=== PATIENT | female | born 1940 | race Caucasian/White ===

== ENCOUNTER → 2016-11-04 | Outpatient (CLI) | payer MEDICARE, BC ==
[~2016-11-04] MED LIST: ACETAMINOPHEN-H1 TA3 PO; AMLODIPINE5 MG PO; CARDI-OMEGA1000 MG PO; DYAZIDE 25 MG-31 CAP PO; GABAPENTIN100 MG PO; GOOD SENSE ASPI81 M1 PO; IPRATROPIUM BROM3 M1 IH; LEVOTHYROXIN0.075 MG PO; MORGIDOX 1X100100 MG PO; NIACIN500 M3 PO; NORCO 325 MG-7.1 TAB PO; PRAVACHOL 40MG40 MG PO; PRAVASTATIN20 MG PO; PREDNISONE20 M1 PO; TIROSINT88 MC1 PO; TOPROL XL 25MG25 MG PO; TOPROL XL 50MG50 MG PO
== END ==
LOC: RAD 11:50
DX: I48.2 Chronic atrial fibrillation (principal); R05 Cough

== ENCOUNTER → 2016-11-06 | Outpatient (CLI) | payer MEDICARE, BC | LOC: LAB 09:01 | DX: I48.91 Unspecified atrial fibrillation (principal); E03.9 Hypothyroidism, unspecified ==

== ENCOUNTER → 2016-12-12 | Outpatient (CLI) | payer MEDICARE, BC ==
[2016-05-13 12:01] VITALS: BP 123/60
== END ==
LOC: RAD 08:16
DX: I48.91 Unspecified atrial fibrillation (principal); E03.9 Hypothyroidism, unspecified; E07.89 Other specified disorders of thyroid; I48.2 Chronic atrial fibrillation; I10 Essential (primary) hypertension; R91.1 Solitary pulmonary nodule
CPT/HCPCS: Q9967

== ENCOUNTER → 2017-01-23 | Outpatient (CLI) | payer MEDICARE, BC ==
[2016-05-13 12:01] VITALS: BP 123/60
== END ==
LOC: LAB 08:15
DX: E03.9 Hypothyroidism, unspecified (principal); I48.91 Unspecified atrial fibrillation; E07.89 Other specified disorders of thyroid; E78.2 Mixed hyperlipidemia

== ENCOUNTER → 2017-02-06 | Outpatient (CLI) | payer MEDICARE, BC ==
[2016-05-13 12:01] VITALS: BP 123/60
== END ==
LOC: LAB 12:29
DX: R06.02 Shortness of breath (principal)

== ENCOUNTER → 2017-02-10 | Outpatient (CLI) | payer MEDICARE, BC ==
[2016-05-13 12:01] VITALS: BP 123/60
== END ==
LOC: LAB 12:42
DX: I10 Essential (primary) hypertension (principal); E87.6 Hypokalemia

== ENCOUNTER → 2017-03-07 | Outpatient (CLI) | payer MEDICARE, BC ==
[2016-05-13 12:01] VITALS: BP 123/60
== END ==
LOC: LAB 16:15
DX: J43.2 Centrilobular emphysema (principal)

== ENCOUNTER → 2017-06-19 | Outpatient (CLI) | payer MEDICARE, BC ==
[2016-05-13 12:01] VITALS: BP 123/60
[2017-06-19 08:06] LABS: BUN/CREATININE RATIO 17.1 (6.0-26.0); CALCIUM 9.5 mg/dL (8.4-10.2); POTASSIUM 3.7 mmol/L (3.6-5.0)
== END ==
LOC: RAD 07:41
PROVIDERS: Internal Medicine Pulmonary Disease
DX: R91.1 Solitary pulmonary nodule (principal); N28.9 Disorder of kidney and ureter, unspecified
CPT/HCPCS: Q9967

== ENCOUNTER → 2017-07-17 | Outpatient (CLI) | payer MEDICARE, BC ==
[2016-05-13 12:01] VITALS: BP 123/60
== END ==
LOC: LAB 10:15 → RAD 10:15
DX: N28.9 Disorder of kidney and ureter, unspecified (principal); N28.1 Cyst of kidney, acquired

== ENCOUNTER → 2017-09-26 | Outpatient (CLI) | payer MEDICARE, BC ==
[2016-05-13 12:01] VITALS: BP 123/60
[2017-09-26 13:34] LABS: BASO # 0.1 (0.02-0.10); EOS # 0.5 (0.04-0.40); EOS % 5.8 % (1.0-5.0); HEMATOCRIT 41.6 % (37.0-47.0); HEMOGLOBIN 13.8 g/dL (12.5-16.0); LYMPH# 2.7 (1.50-4.00); MEAN CELL VOLUME 90 fl (78-100); MEAN CORPUSCULAR HEMOGLOBIN 30 pg (27-31); MEAN CORPUSCULAR HGB CONC 33 g/dL (33-37); MEAN PLATELET VOLUME 10.6 fl (7.4-10.4); MONO # 0.8 (0.20-0.80); NEU # 4.8 (1.40-6.50); PLATELET COUNT 327 K/mm3 (130-400); RED BLOOD COUNT 4.62 M/mm3 (4.10-5.30); RED CELL DISTRIBUTION WIDTH 12.9 % (11.5-14.5); WHITE BLOOD COUNT 8.9 K/mm3 (4.8-10.8)
[2017-09-26 14:11] LABS: URINE COLOR YELLOW
[2017-09-26 14:12] LABS: PH-URINE 5.5 (5.0 - 8.0); URINE APPEARANCE HAZY; URINE BILIRUBIN NEGATIVE (NEGATIVE); URINE BLOOD TRACE (NEGATIVE); URINE GLUCOSE NEGATIVE (NEGATIVE); URINE KETONE NEGATIVE (NEGATIVE); URINE LEUKOCYTE ESTERASE 2+ (NEGATIVE); URINE NITRATE NEGATIVE (NEGATIVE); URINE PROTEIN(semi-quant) TRACE mg/dL (NEGATIVE); URINE UROBILINOGEN NORMAL (NORMAL); URINE WBC 16-30 /hpf (0-3)
[2017-09-26 14:29] LABS: ALBUMIN 3.8 g/dL (3.5-5.0); BUN/CREATININE RATIO 19.7 (6.0-26.0); CALCIUM 9.6 mg/dL (8.4-10.2); TOTAL BILIRUBIN 0.3 mg/dL (0.2-1.3); TOTAL PROTEIN 6.6 g/dL (6.3-8.2)
[2017-09-26 15:14] LABS: ERYTHROCYTE SEDIMENTATION RATE 25 mm/hr (0-30)
== END ==
LOC: LAB 12:58
PROVIDERS: Internal Medicine
DX: I48.2 Chronic atrial fibrillation (principal); E78.2 Mixed hyperlipidemia; M85.89 Other specified disorders of bone density and structure, multiple sites; Z12.11 Encounter for screening for malignant neoplasm of colon

== ENCOUNTER → 2017-12-25 | Outpatient (CLI) | payer MEDICARE, BC ==
[2016-05-13 12:01] VITALS: BP 123/60
[2017-12-25 08:54] LABS: BUN/CREATININE RATIO 19.9 (6.0-26.0); CALCIUM 9.2 mg/dL (8.4-10.2); POTASSIUM 3.4 mmol/L (3.6-5.0); TOTAL BILIRUBIN 0.7 mg/dL (0.2-1.3); TOTAL PROTEIN 7.4 g/dL (6.3-8.2)
== END ==
LOC: LAB 08:17
DX: I10 Essential (primary) hypertension (principal); E78.2 Mixed hyperlipidemia

== ENCOUNTER 2018-01-30 10:52 | Observation (INO) | payer MEDICARE, BC ==
[~2018-01-30] VITALS: Ht 157.5 cm; Wt 53.6 kg
[~2018-01-30 10:52] MED LIST changes: +TIROSINT75 MC1 PO; -TIROSINT88 MC1 PO
[2018-01-30] MEDS ORDERED: MACROBID 1100 MG/CAP PO (11:04)
[2018-01-30] MEDS ORDERED: ATORVASTATIN CA40 MG PO (11:05)
[2018-01-30 11:50] LABS: HEMOGLOBIN 14.7 g/dL (12.5-16.0); MEAN CELL VOLUME 86 fl (78-100); MEAN CORPUSCULAR HEMOGLOBIN 29 pg (27-31); MEAN CORPUSCULAR HGB CONC 34 g/dL (33-37); MEAN PLATELET VOLUME 10.9 fl (7.4-10.4); PLATELET COUNT 212 K/mm3 (130-400); RED CELL DISTRIBUTION WIDTH 12.5 % (11.5-14.5); WHITE BLOOD COUNT 9.2 K/mm3 (4.8-10.8)
[2018-01-30 12:00] LABS: ALBUMIN 3.8 g/dL (3.5-5.0); BUN/CREATININE RATIO 22.2 (6.0-26.0); CALCIUM 9.5 mg/dL (8.4-10.2); LYMPHOCYTE 20 % (20-51); MONOCYTE 7 % (3-10); NEUTROPHILS 59 % (42-75); POTASSIUM 3.2 mmol/L (3.6-5.0); TOTAL BILIRUBIN 1.7 mg/dL (0.2-1.3); TOTAL PROTEIN 7.6 g/dL (6.3-8.2)
[2018-01-30 13:12] LABS: URINE APPEARANCE CLEAR; URINE BILIRUBIN NEGATIVE (NEGATIVE); URINE BLOOD NEGATIVE (NEGATIVE); URINE COLOR YELLOW; URINE GLUCOSE NEGATIVE (NEGATIVE); URINE KETONE NEGATIVE (NEGATIVE); URINE LEUKOCYTE ESTERASE NEGATIVE (NEGATIVE); URINE MUCUS PRESENT (NOT PRESENT); URINE NITRATE NEGATIVE (NEGATIVE); URINE PROTEIN(semi-quant) TRACE mg/dL (NEGATIVE); URINE UROBILINOGEN NORMAL (NORMAL)
[2018-01-30 13:48] VITALS: BP 105/50
[2018-01-30 14:32] VITALS: BP 103/44
[2018-01-30] MEDS ORDERED: NATURE'S BOUNTY1 TAB PO (17:36)
[2018-01-30 18:24] VITALS: BP 104/40
[2018-01-30 21:40] VITALS: BP 107/50
[2018-01-31] VITALS (9 sets, daily range): BP systolic 86–114; BP diastolic 38–56
[2018-01-31 08:46] LABS: BUN/CREATININE RATIO 20.4 (6.0-26.0); POTASSIUM 3.1 mmol/L (3.6-5.0)
[2018-01-31 08:47] LABS: ALBUMIN 2.4 g/dL (3.5-5.0); CALCIUM 7.6 mg/dL (8.4-10.2); TOTAL BILIRUBIN 2.8 mg/dL (0.2-1.3); TOTAL PROTEIN 5.1 g/dL (6.3-8.2)
[2018-01-31 09:01] LABS: HEMATOCRIT 34.5 % (37.0-47.0); HEMOGLOBIN 11.9 g/dL (12.5-16.0); MEAN CELL VOLUME 87 fl (78-100); MEAN CORPUSCULAR HEMOGLOBIN 30 pg (27-31); MEAN CORPUSCULAR HGB CONC 35 g/dL (33-37); RED BLOOD COUNT 3.96 M/mm3 (4.10-5.30); RED CELL DISTRIBUTION WIDTH 12.6 % (11.5-14.5)
[2018-01-31 09:02] LABS: MEAN PLATELET VOLUME 10.8 fl (7.4-10.4); PLATELET COUNT 157 K/mm3 (130-400)
[2018-01-31 09:04] LABS: LYMPHOCYTE 4 % (20-51); MONOCYTE 9 % (3-10); NEUTROPHILS 87 % (42-75)
[2018-02-01 02:47] VITALS: BP 106/46
[2018-02-01 06:45] VITALS: BP 105/46
[2018-02-01 08:00] LABS: HEMATOCRIT 41.1 % (37.0-47.0); HEMOGLOBIN 13.6 g/dL (12.5-16.0); MEAN CELL VOLUME 89 fl (78-100); MEAN CORPUSCULAR HEMOGLOBIN 30 pg (27-31); MEAN CORPUSCULAR HGB CONC 33 g/dL (33-37); MEAN PLATELET VOLUME 11.2 fl (7.4-10.4); PLATELET COUNT 176 K/mm3 (130-400); RED CELL DISTRIBUTION WIDTH 13.1 % (11.5-14.5)
[2018-02-01 08:07] LABS: ALBUMIN 3.2 g/dL (3.5-5.0); BUN/CREATININE RATIO 19.3 (6.0-26.0); CALCIUM 8.3 mg/dL (8.4-10.2); POTASSIUM 3.6 mmol/L (3.6-5.0); TOTAL BILIRUBIN 3.7 mg/dL (0.2-1.3); TOTAL PROTEIN 6.6 g/dL (6.3-8.2)
[2018-02-01 08:21] LABS: BAND 2 % (0-10); LYMPHOCYTE 12 % (20-51); MONOCYTE 2 % (3-10); NEUTROPHILS 81 % (42-75)
[2018-02-01 11:18] VITALS: BP 116/44
[2018-02-01] MEDS ORDERED: ONDANSENTRON 4MG/2ML IV (11:30)
[2018-02-01] MEDS ORDERED: FENTANYL 50 MCG/ML IV (11:30)
[2018-02-01] MEDS ORDERED: KLOR-CON 1010 MEQ PO (11:31)
[2018-02-01] MEDS ORDERED: TORADOL IV (11:32)
[2018-02-01] MEDS ORDERED: ALBUTEROL S5 MG/1 ML IH (11:32)
== END 2018-02-01 13:55 | disposition short-term general hospital (02) ==
LOC: ED 10:52 → MED/SURG 13:58
PROVIDERS: Family Medicine; ADMIT Physician Assistant
DX: R10.11 Right upper quadrant pain (principal); E87.70 Fluid overload, unspecified; J90 Pleural effusion, not elsewhere classified; R50.9 Fever, unspecified; I10 Essential (primary) hypertension; I48.91 Unspecified atrial fibrillation; E03.9 Hypothyroidism, unspecified; J43.9 Emphysema, unspecified; Z79.82 Long term (current) use of aspirin; Z90.49 Acquired absence of other specified parts of digestive tract; F17.210 Nicotine dependence, cigarettes, uncomplicated; R11.0 Nausea; R74.8 Abnormal levels of other serum enzymes; I65.29 Occlusion and stenosis of unspecified carotid artery; N39.0 Urinary tract infection, site not specified
CPT/HCPCS: G0378; J0295; J1885; J1940; J2405; J3010; J7030; Q9967

== ENCOUNTER → 2018-02-05 | Outpatient (CLI) | payer MEDICARE, BC ==
[2018-02-01 11:18] VITALS: BP 116/44
[~2018-02-05] MED LIST changes: +ALBUTEROL S5 MG/1 ML IH; +ATORVASTATIN CA40 MG PO; +FENTANYL 50 MCG/ML IV; +KLOR-CON 1010 MEQ PO; +MACROBID 1100 MG/CAP PO; +NATURE'S BOUNTY1 TAB PO; +ONDANSENTRON 4MG/2ML IV; +TORADOL IV
[2018-02-05 09:40] LABS: HEMOGLOBIN 11.7 g/dL (12.5-16.0); MEAN CELL VOLUME 89 fl (78-100); MEAN CORPUSCULAR HEMOGLOBIN 30 pg (27-31); MEAN CORPUSCULAR HGB CONC 33 g/dL (33-37); MEAN PLATELET VOLUME 10.1 fl (7.4-10.4); PLATELET COUNT 342 K/mm3 (130-400); RED BLOOD COUNT 3.93 M/mm3 (4.10-5.30); RED CELL DISTRIBUTION WIDTH 12.8 % (11.5-14.5); WHITE BLOOD COUNT 11.2 K/mm3 (4.8-10.8)
[2018-02-05 10:00] LABS: ALBUMIN 3.1 g/dL (3.5-5.0); BUN/CREATININE RATIO 10.2 (6.0-26.0); CALCIUM 8.5 mg/dL (8.4-10.2); POTASSIUM 3.1 mmol/L (3.6-5.0); TOTAL BILIRUBIN 1.4 mg/dL (0.2-1.3); TOTAL PROTEIN 6.6 g/dL (6.3-8.2)
[2018-02-05 10:06] LABS: LYMPHOCYTE 28 % (20-51); MONOCYTE 2 % (3-10); NEUTROPHILS 48 % (42-75)
== END ==
LOC: LAB 09:05
DX: J18.9 Pneumonia, unspecified organism (principal); K85.90 Acute pancreatitis without necrosis or infection, unspecified

== ENCOUNTER → 2018-02-13 | Outpatient (CLI) | payer MEDICARE, BC ==
[2018-02-01 11:18] VITALS: BP 116/44
[2018-02-13 15:03] LABS: HEMATOCRIT 40.1 % (37.0-47.0); HEMOGLOBIN 12.9 g/dL (12.5-16.0); MEAN CELL VOLUME 92 fl (78-100); MEAN CORPUSCULAR HEMOGLOBIN 30 pg (27-31); MEAN CORPUSCULAR HGB CONC 32 g/dL (33-37); MEAN PLATELET VOLUME 10.2 fl (7.4-10.4); RED BLOOD COUNT 4.38 M/mm3 (4.10-5.30); RED CELL DISTRIBUTION WIDTH 13.6 % (11.5-14.5); WHITE BLOOD COUNT 8.1 K/mm3 (4.8-10.8)
[2018-02-13 15:32] LABS: PLATELET COUNT 505 K/mm3 (130-400)
[2018-02-13 15:43] LABS: ALBUMIN 3.9 g/dL (3.5-5.0); BUN/CREATININE RATIO 14.6 (6.0-26.0); CALCIUM 9.3 mg/dL (8.4-10.2); POTASSIUM 3.6 mmol/L (3.6-5.0); TOTAL PROTEIN 8.1 g/dL (6.3-8.2)
[2018-02-13 15:55] LABS: LYMPHOCYTE 47 % (20-51); MONOCYTE 7 % (3-10); NEUTROPHILS 37 % (42-75)
[2018-02-13 16:02] LABS: ERYTHROCYTE SEDIMENTATION RATE 49 mm/hr (0-30)
== END ==
LOC: LAB 14:44
PROVIDERS: Internal Medicine
DX: I10 Essential (primary) hypertension (principal)

== ENCOUNTER → 2018-03-11 | Outpatient (CLI) | payer MEDICARE, BC ==
[2018-03-11 18:30] LABS: HEMATOCRIT 41.8 % (37.0-47.0); HEMOGLOBIN 13.5 g/dL (12.5-16.0); MEAN CELL VOLUME 91 fl (78-100); MEAN CORPUSCULAR HEMOGLOBIN 29 pg (27-31); MEAN CORPUSCULAR HGB CONC 32 g/dL (33-37); MEAN PLATELET VOLUME 11.1 fl (7.4-10.4); PLATELET COUNT 249 K/mm3 (130-400); RED BLOOD COUNT 4.59 M/mm3 (4.10-5.30); RED CELL DISTRIBUTION WIDTH 13.2 % (11.5-14.5); WHITE BLOOD COUNT 7.7 K/mm3 (4.8-10.8)
[2018-03-11 18:34] LABS: BUN/CREATININE RATIO 18.7 (6.0-26.0); TOTAL BILIRUBIN 0.5 mg/dL (0.2-1.3); TOTAL PROTEIN 7.7 g/dL (6.3-8.2)
[2018-03-11 20:21] LABS: LYMPHOCYTE 31 % (20-51); MONOCYTE 6 % (3-10); NEUTROPHILS 56 % (42-75)
== END ==
LOC: LAB 17:28
PROVIDERS: Internal Medicine
DX: I10 Essential (primary) hypertension (principal)

== ENCOUNTER → 2018-04-21 | Outpatient (CLI) | payer MEDICARE, BC ==
[2018-04-21 15:02] LABS: EOS # 0.4 (0.04-0.40); EOS % 5.6 % (1.0-5.0); HEMATOCRIT 42.3 % (37.0-47.0); LYMPH# 2.4 (1.50-4.00); MEAN CELL VOLUME 89 fl (78-100); MEAN CORPUSCULAR HEMOGLOBIN 29 pg (27-31); MEAN CORPUSCULAR HGB CONC 33 g/dL (33-37); MEAN PLATELET VOLUME 10.8 fl (7.4-10.4); MONO # 0.7 (0.20-0.80); NEU # 3.7 (1.40-6.50); PLATELET COUNT 258 K/mm3 (130-400); RED BLOOD COUNT 4.77 M/mm3 (4.10-5.30); RED CELL DISTRIBUTION WIDTH 12.9 % (11.5-14.5); WHITE BLOOD COUNT 7.3 K/mm3 (4.8-10.8)
[2018-04-21 15:06] LABS: CALCIUM 9.3 mg/dL (8.4-10.2); POTASSIUM 3.8 mmol/L (3.6-5.0); TOTAL BILIRUBIN 0.6 mg/dL (0.2-1.3); TOTAL PROTEIN 7.4 g/dL (6.3-8.2)
[2018-04-21 15:10] LABS: URINE APPEARANCE CLEAR; URINE COLOR LT YELLOW
[2018-04-21 15:11] LABS: PH-URINE 5.5 (5.0 - 8.0); URINE BILIRUBIN NEGATIVE (NEGATIVE); URINE BLOOD NEGATIVE (NEGATIVE); URINE GLUCOSE NEGATIVE (NEGATIVE); URINE KETONE NEGATIVE (NEGATIVE); URINE LEUKOCYTE ESTERASE TRACE (NEGATIVE); URINE NITRATE NEGATIVE (NEGATIVE); URINE PROTEIN(semi-quant) TRACE mg/dL (NEGATIVE); URINE UROBILINOGEN NORMAL (NORMAL)
== END ==
LOC: LAB 14:26
PROVIDERS: Internal Medicine
DX: R10.13 Epigastric pain (principal)

== ENCOUNTER → 2018-05-07 | Outpatient (CLI) | payer MEDICARE, BC ==
[2018-04-28 13:23] VITALS: BP 93/38
[2018-05-07 11:00] LABS: EOS # 0.4 (0.04-0.40); EOS % 5.8 % (1.0-5.0); HEMATOCRIT 40.7 % (37.0-47.0); HEMOGLOBIN 13.4 g/dL (12.5-16.0); LYMPH# 1.8 (1.50-4.00); MEAN CELL VOLUME 90 fl (78-100); MEAN CORPUSCULAR HEMOGLOBIN 30 pg (27-31); MEAN CORPUSCULAR HGB CONC 33 g/dL (33-37); MEAN PLATELET VOLUME 9.9 fl (7.4-10.4); MONO # 0.7 (0.20-0.80); NEU # 3.7 (1.40-6.50); PLATELET COUNT 363 K/mm3 (130-400); RED BLOOD COUNT 4.54 M/mm3 (4.10-5.30); RED CELL DISTRIBUTION WIDTH 13.3 % (11.5-14.5); WHITE BLOOD COUNT 6.7 K/mm3 (4.8-10.8)
[2018-05-07 11:25] LABS: ALBUMIN 3.7 g/dL (3.5-5.0); POTASSIUM 3.8 mmol/L (3.6-5.0); TOTAL BILIRUBIN 0.7 mg/dL (0.2-1.3)
[2018-05-07 12:07] LABS: ERYTHROCYTE SEDIMENTATION RATE 35 mm/hr (0-30)
== END ==
LOC: LAB 10:33
PROVIDERS: Internal Medicine
DX: K85.90 Acute pancreatitis without necrosis or infection, unspecified (principal); J43.9 Emphysema, unspecified; K83.0 Cholangitis; R10.13 Epigastric pain

== ENCOUNTER → 2018-05-29 | Outpatient (CLI) | payer MEDICARE, BC ==
[2018-04-28 13:23] VITALS: BP 93/38
[2018-05-29 11:07] LABS: ALBUMIN 3.8 g/dL (3.5-5.0); DIRECT BILIRUBIN 0.5 mg/dL (0.0-0.4); TOTAL BILIRUBIN 0.9 mg/dL (0.2-1.3); TOTAL PROTEIN 6.8 g/dL (6.3-8.2)
== END ==
LOC: LAB 10:08
PROVIDERS: Internal Medicine
DX: E03.9 Hypothyroidism, unspecified (principal); R10.13 Epigastric pain

== ENCOUNTER → 2018-07-24 | Outpatient (CLI) | payer MEDICARE, BC ==
[2018-04-28 13:23] VITALS: BP 93/38
== END ==
LOC: LAB 07:28
DX: E03.9 Hypothyroidism, unspecified (principal)

== ENCOUNTER → 2018-08-26 | Outpatient (CLI) | payer MEDICARE, BC ==
[2018-04-28 13:23] VITALS: BP 93/38
== END ==
LOC: RAD 10:38
DX: R07.81 Pleurodynia (principal); Z95.818 Presence of other cardiac implants and grafts

== ENCOUNTER → 2018-10-01 | Outpatient (CLI) | payer MEDICARE, BC ==
[2018-04-28 13:23] VITALS: BP 93/38
[2018-10-01 10:36] LABS: CALCIUM 9.4 mg/dL (8.4-10.2); POTASSIUM 3.5 mmol/L (3.6-5.0); TOTAL BILIRUBIN 0.5 mg/dL (0.2-1.3); TOTAL PROTEIN 7.2 g/dL (6.3-8.2)
== END ==
LOC: LAB 10:06
PROVIDERS: Internal Medicine
DX: I10 Essential (primary) hypertension (principal); E03.9 Hypothyroidism, unspecified; M85.80 Other specified disorders of bone density and structure, unspecified site

== ENCOUNTER → 2018-12-29 | Outpatient (CLI) | payer MEDICARE, BC ==
[2018-04-28 13:23] VITALS: BP 93/38
[2018-12-29 10:23] LABS: ALBUMIN 3.9 g/dL (3.5-5.0); CALCIUM 9.3 mg/dL (8.4-10.2); POTASSIUM 3.9 mmol/L (3.6-5.0); TOTAL BILIRUBIN 0.9 mg/dL (0.2-1.3); TOTAL PROTEIN 6.9 g/dL (6.3-8.2)
== END ==
LOC: LAB 09:19
PROVIDERS: Internal Medicine Cardiovascular Disease
DX: E78.5 Hyperlipidemia, unspecified (principal); I10 Essential (primary) hypertension

== ENCOUNTER → 2019-02-08 | Outpatient (CLI) | payer MEDICARE, BC ==
[2018-04-28 13:23] VITALS: BP 93/38
[2019-02-08 13:44] LABS: EOS # 0.2 (0.04-0.40); EOS % 2.1 % (1.0-5.0); HEMATOCRIT 41.3 % (37.0-47.0); HEMOGLOBIN 13.4 g/dL (12.5-16.0); LYMPH# 3.2 (1.50-4.00); MEAN CELL VOLUME 90 fl (78-100); MEAN CORPUSCULAR HEMOGLOBIN 29 pg (27-31); MEAN CORPUSCULAR HGB CONC 32 g/dL (33-37); MEAN PLATELET VOLUME 9.6 fl (7.4-10.4); PLATELET COUNT 317 K/mm3 (130-400); RED BLOOD COUNT 4.61 M/mm3 (4.10-5.30); RED CELL DISTRIBUTION WIDTH 12.7 % (11.5-14.5); WHITE BLOOD COUNT 11.4 K/mm3 (4.8-10.8)
[2019-02-08 14:07] LABS: ALBUMIN 2.9 g/dL (3.4-4.8); CALCIUM 8.7 mg/dL (8.3-10.5); POTASSIUM 3.2 mmol/L (3.5-5.1); TOTAL BILIRUBIN 0.4 mg/dL (0.2-1.2)
[2019-02-08 14:50] LABS: ERYTHROCYTE SEDIMENTATION RATE 40 mm/hr (0-30)
== END ==
LOC: LAB 13:31
PROVIDERS: Internal Medicine
DX: J98.4 Other disorders of lung (principal)

== ENCOUNTER → 2019-02-18 | Outpatient (CLI) | payer MEDICARE, BC ==
[2018-04-28 13:23] VITALS: BP 93/38
[2019-02-18 10:49] LABS: POTASSIUM 3.9 mmol/L (3.5-5.1)
[2019-02-18 10:50] LABS: CALCIUM 9.7 mg/dL (8.3-10.5)
== END ==
LOC: LAB 10:28
PROVIDERS: Internal Medicine
DX: I10 Essential (primary) hypertension (principal); E87.6 Hypokalemia

== ENCOUNTER → 2019-02-24 | Outpatient (CLI) | payer MEDICARE, BC ==
[2018-04-28 13:23] VITALS: BP 93/38
== END ==
LOC: VAS 12:53 → RAD 13:00
DX: I48.91 Unspecified atrial fibrillation (principal)

== ENCOUNTER → 2019-03-11 | Outpatient (CLI) | payer MEDICARE, BC ==
[2018-04-28 13:23] VITALS: BP 93/38
== END ==
LOC: MAMMO 09:05
DX: Z12.31 Encounter for screening mammogram for malignant neoplasm of breast (principal); M85.89 Other specified disorders of bone density and structure, multiple sites

== ENCOUNTER → 2019-03-11 | Outpatient (CLI) | payer MEDICARE, BC ==
[2018-04-28 13:23] VITALS: BP 93/38
== END ==
LOC: RAD 09:03 → MAMMO 10:00 → RAD 10:00
DX: M85.80 Other specified disorders of bone density and structure, unspecified site (principal)

== ENCOUNTER → 2019-03-19 | Outpatient (CLI) | payer MEDICARE, BC ==
[2018-04-28 13:23] VITALS: BP 93/38
== END ==
LOC: CARDREHAB 08:37
DX: I48.91 Unspecified atrial fibrillation (principal)
CPT/HCPCS: A9500

== ENCOUNTER → 2020-01-11 | Outpatient (CLI) | payer MEDICARE, BC ==
[2018-04-28 13:23] VITALS: BP 93/38
[2020-01-11 15:05] LABS: EOS # 0.3 (0.04-0.40); EOS % 3.2 % (1.0-5.0); HEMATOCRIT 41.6 % (37.0-47.0); HEMOGLOBIN 13.8 g/dL (12.5-16.0); LYMPH# 2.2 (1.50-4.00); MEAN CELL VOLUME 90 fl (78-100); MEAN CORPUSCULAR HEMOGLOBIN 30 pg (27-31); MEAN CORPUSCULAR HGB CONC 33 g/dL (33-37); MEAN PLATELET VOLUME 10.8 fl (7.4-10.4); MONO # 0.7 (0.20-0.80); NEU # 4.9 (1.40-6.50); PLATELET COUNT 246 K/mm3 (130-400); RED BLOOD COUNT 4.62 M/mm3 (4.10-5.30); RED CELL DISTRIBUTION WIDTH 12.2 % (11.5-14.5); WHITE BLOOD COUNT 8.1 K/mm3 (4.8-10.8)
[2020-01-11 15:20] LABS: ALBUMIN 3.7 g/dL (3.4-4.8); POTASSIUM 4.4 mmol/L (3.5-5.1)
[2020-01-11 15:21] LABS: CALCIUM 9.3 mg/dL (8.3-10.5)
[2020-01-11 15:23] LABS: TOTAL PROTEIN 6.8 g/dL (6.2-8.1)
[2020-01-11 15:24] LABS: TOTAL BILIRUBIN 0.6 mg/dL (0.2-1.2)
[2020-01-11 16:15] LABS: ERYTHROCYTE SEDIMENTATION RATE 20 mm/hr (0-30)
== END ==
LOC: LAB 14:24
PROVIDERS: Internal Medicine
DX: R10.84 Generalized abdominal pain (principal); R06.02 Shortness of breath

== ENCOUNTER 2020-01-26 11:45 | Emergency (ER) | payer MEDICARE, BC ==
[~2020-01-26 11:45] MED LIST changes: +ASPIRIN E.C. 8181 MG PO; -GOOD SENSE ASPI81 M1 PO; -NATURE'S BOUNTY1 TAB PO; -NIACIN500 M3 PO; +NIACIN500 M6 PO; -TIROSINT75 MC1 PO; +TIROSINT88 MC1 PO; +VITAMIN D325 MC2 PO
[2020-01-26 12:47] LABS: EOS # 0.3 (0.04-0.40); EOS % 4.3 % (1.0-5.0); HEMATOCRIT 42.9 % (37.0-47.0); HEMOGLOBIN 14.2 g/dL (12.5-16.0); LYMPH# 1.8 (1.50-4.00); MEAN CELL VOLUME 90 fl (78-100); MEAN CORPUSCULAR HEMOGLOBIN 30 pg (27-31); MEAN CORPUSCULAR HGB CONC 33 g/dL (33-37); MEAN PLATELET VOLUME 10.8 fl (7.4-10.4); MONO # 0.7 (0.20-0.80); NEU # 4.4 (1.40-6.50); PLATELET COUNT 218 K/mm3 (130-400); RED BLOOD COUNT 4.78 M/mm3 (4.10-5.30); RED CELL DISTRIBUTION WIDTH 12.4 % (11.5-14.5); WHITE BLOOD COUNT 7.3 K/mm3 (4.8-10.8)
[2020-01-26 12:59] LABS: ALBUMIN 3.9 g/dL (3.4-4.8); POTASSIUM 3.7 mmol/L (3.5-5.1); SODIUM 144 mmol/L (136-145)
[2020-01-26 13:00] LABS: CALCIUM 9.6 mg/dL (8.3-10.5)
[2020-01-26 13:01] LABS: GLUCOSE 99 mg/dL (65-105)
[2020-01-26 13:02] LABS: TOTAL PROTEIN 7.2 g/dL (6.2-8.1)
[2020-01-26 13:03] LABS: CARBON DIOXIDE 21 mmol/L (23-31); TOTAL BILIRUBIN 0.5 mg/dL (0.2-1.2)
[2020-01-26] MEDS ORDERED: AMLODIPINE BESYL5 MG PO (13:04)
[2020-01-26] MEDS ORDERED: DYAZIDE 37.5-21 EACH PO (13:04)
[2020-01-26] MEDS ORDERED: FISH OIL 1,001000 MG PO (13:05)
[2020-01-26 13:07] LABS: AST-SGOT 26 U/L (5-34)
[2020-01-26] MEDS ORDERED: NATURE'S BLEND500 M5 PO (13:07)
[2020-01-26 13:08] LABS: ALT/SGPT 22 U/L (0-55); D-DIMER 0.66 mg/L FEU (0.15-0.50)
[2020-01-26 13:15] LABS: TROPONIN-I < 0.03 ng/mL (<0.030)
[2020-01-26 14:21] LABS: URINE APPEARANCE CLEAR; URINE BILIRUBIN NEGATIVE (NEGATIVE); URINE BLOOD NEGATIVE (NEGATIVE); URINE COLOR YELLOW; URINE GLUCOSE NEGATIVE (NEGATIVE); URINE KETONE NEGATIVE (NEGATIVE); URINE NITRATE NEGATIVE (NEGATIVE); URINE PROTEIN(semi-quant) 1+ mg/dL (NEGATIVE); URINE UROBILINOGEN NORMAL (NORMAL)
[2020-01-26 14:22] LABS: URINE LEUKOCYTE ESTERASE NEGATIVE (NEGATIVE)
[2020-01-26] MEDS ORDERED: LEVOTHYROXIN0.075 MG PO (14:55)
[2020-01-26 15:03] VITALS: BP 147/65
== END 2020-01-26 15:05 | disposition home or self-care (01) ==
LOC: ED 11:45
PROVIDERS: Physician Assistant
DX: E05.90 Thyrotoxicosis, unspecified without thyrotoxic crisis or storm (principal); I10 Essential (primary) hypertension; I48.91 Unspecified atrial fibrillation; F17.210 Nicotine dependence, cigarettes, uncomplicated; Z95.9 Presence of cardiac and vascular implant and graft, unspecified; Z79.82 Long term (current) use of aspirin; Z90.49 Acquired absence of other specified parts of digestive tract; Z90.710 Acquired absence of both cervix and uterus; Z90.89 Acquired absence of other organs
CPT/HCPCS: Q9967

== ENCOUNTER → 2020-02-21 | Outpatient (CLI) | payer MEDICARE, BC ==
[2020-01-26 15:03] VITALS: BP 147/65
[~2020-02-21] MED LIST changes: +AMLODIPINE BESYL5 MG PO; +DYAZIDE 37.5-21 EACH PO; +FISH OIL 1,001000 MG PO; +NATURE'S BLEND500 M5 PO
== END ==
LOC: LAB 08:29
DX: E03.9 Hypothyroidism, unspecified (principal)

== ENCOUNTER → 2020-03-23 | Outpatient (CLI) | payer MEDICARE, BC | LOC: MAMMO 09:47 | DX: Z12.31 Encounter for screening mammogram for malignant neoplasm of breast (principal) ==

== ENCOUNTER → 2020-05-19 | Outpatient (CLI) | payer MEDICARE, BC | LOC: RAD 10:41 | DX: M81.0 Age-related osteoporosis without current pathological fracture (principal); R07.89 Other chest pain ==

== ENCOUNTER → 2020-09-14 | Outpatient (CLI) | payer MEDICARE ==
[2020-09-14 07:53] LABS: ALBUMIN 3.7 g/dL (3.4-4.8)
[2020-09-14 07:56] LABS: TOTAL PROTEIN 6.7 g/dL (6.2-8.1)
[2020-09-14 07:58] LABS: TOTAL BILIRUBIN 0.8 mg/dL (0.2-1.2)
[2020-09-14 08:01] LABS: DIRECT BILIRUBIN 0.3 mg/dL (0.0-0.5)
== END ==
LOC: LAB 07:01
PROVIDERS: Internal Medicine Cardiovascular Disease
DX: E78.2 Mixed hyperlipidemia (principal)

== ENCOUNTER 2020-11-07 08:18 | Emergency (ER) | payer MEDICARE ==
[2020-11-07] MEDS ORDERED: LEVOTHYROXINE0.05 MG PO (08:52)
[2020-11-07] MEDS ORDERED: METOPROLOL SUCC25 M1 PO (08:53)
[2020-11-07] MEDS ORDERED: ELIQUIS2.5 MG PO (08:53)
[2020-11-07 09:30] LABS: EOS # 0.4 (0.04-0.40); EOS % 5.5 % (1.0-5.0); HEMATOCRIT 44.9 % (37.0-47.0); HEMOGLOBIN 14.7 g/dL (12.5-16.0); LYMPH# 1.7 (1.50-4.00); MEAN CELL VOLUME 93 fl (78-100); MEAN CORPUSCULAR HEMOGLOBIN 31 pg (27-31); MEAN CORPUSCULAR HGB CONC 33 g/dL (33-37); MEAN PLATELET VOLUME 10.8 fl (7.4-10.4); MONO # 0.6 (0.20-0.80); NEU # 3.8 (1.40-6.50); PLATELET COUNT 225 K/mm3 (130-400); RED BLOOD COUNT 4.82 M/mm3 (4.10-5.30); RED CELL DISTRIBUTION WIDTH 12.9 % (11.5-14.5); WHITE BLOOD COUNT 6.6 K/mm3 (4.8-10.8)
[2020-11-07 09:39] LABS: ALBUMIN 4.3 g/dL (3.4-4.8); POTASSIUM 3.8 mmol/L (3.5-5.1); SODIUM 142 mmol/L (136-145)
[2020-11-07 09:40] LABS: CALCIUM 9.7 mg/dL (8.3-10.5)
[2020-11-07 09:41] LABS: GLUCOSE 75 mg/dL (65-105)
[2020-11-07 09:42] LABS: CARBON DIOXIDE 27 mmol/L (23-31)
[2020-11-07 09:43] LABS: TOTAL BILIRUBIN 0.8 mg/dL (0.2-1.2)
[2020-11-07 09:44] LABS: PARTIAL THROMBOPLASTIN TIME 30.7 SECONDS (21.0-32.0); PROTHROMBIN TIME 10.4 SECONDS (9.0-12.0)
[2020-11-07 09:47] LABS: AST-SGOT 35 U/L (5-34)
[2020-11-07 09:48] LABS: ALT/SGPT 27 U/L (0-55)
[2020-11-07 09:55] LABS: TROPONIN-I < 0.03 ng/mL (<0.030)
[2020-11-07 09:58] LABS: URINE APPEARANCE CLOUDY; URINE BILIRUBIN NEGATIVE (NEGATIVE); URINE BLOOD NEGATIVE (NEGATIVE); URINE COLOR YELLOW; URINE GLUCOSE NEGATIVE (NEGATIVE); URINE KETONE NEGATIVE (NEGATIVE); URINE LEUKOCYTE ESTERASE 1+ (NEGATIVE); URINE NITRATE POSITIVE (NEGATIVE); URINE PROTEIN(semi-quant) 1+ mg/dL (NEGATIVE); URINE UROBILINOGEN NORMAL (NORMAL); URINE WBC 16-30 /hpf (0-3)
[2020-11-07 19:00] VITALS: BP 167/61
== END 2020-11-07 19:00 | disposition short-term general hospital (02) ==
LOC: ED 08:18
PROVIDERS: Nurse Practitioner
DX: I49.5 Sick sinus syndrome (principal); I48.91 Unspecified atrial fibrillation; I10 Essential (primary) hypertension; E78.5 Hyperlipidemia, unspecified; F17.210 Nicotine dependence, cigarettes, uncomplicated; Z95.0 Presence of cardiac pacemaker; Z20.822 Contact with and (suspected) exposure to COVID-19; Z95.818 Presence of other cardiac implants and grafts; Z79.82 Long term (current) use of aspirin; Z79.01 Long term (current) use of anticoagulants; Z88.1 Allergy status to other antibiotic agents

== ENCOUNTER 2020-11-16 10:55 | Emergency (ER) | payer MEDICARE ==
[~2020-11-16 10:55] MED LIST changes: +ELIQUIS2.5 MG PO; +LEVOTHYROXINE0.05 MG PO; +METOPROLOL SUCC25 M1 PO
[2020-11-16] MEDS ORDERED: EUTHYROX75 MCG PO (11:05)
[2020-11-16] MEDS ORDERED: CIPROFLOXACIN250 MG PO (11:23)
[2020-11-16 12:25] LABS: BASO # 0.1 (0.02-0.10); EOS # 0.4 (0.04-0.40); EOS % 5.4 % (1.0-5.0); HEMATOCRIT 37.6 % (37.0-47.0); HEMOGLOBIN 12.3 g/dL (12.5-16.0); LYMPH# 1.7 (1.50-4.00); MEAN CELL VOLUME 94 fl (78-100); MEAN CORPUSCULAR HEMOGLOBIN 31 pg (27-31); MEAN CORPUSCULAR HGB CONC 33 g/dL (33-37); MEAN PLATELET VOLUME 10.6 fl (7.4-10.4); MONO # 0.7 (0.20-0.80); PLATELET COUNT 157 K/mm3 (130-400); RED BLOOD COUNT 4.02 M/mm3 (4.10-5.30); RED CELL DISTRIBUTION WIDTH 12.8 % (11.5-14.5); WHITE BLOOD COUNT 7.9 K/mm3 (4.8-10.8)
[2020-11-16 12:46] LABS: ALBUMIN 3.6 g/dL (3.4-4.8)
[2020-11-16 12:47] LABS: SODIUM 143 mmol/L (136-145)
[2020-11-16 12:49] LABS: GLUCOSE 92 mg/dL (65-105); TOTAL PROTEIN 6.9 g/dL (6.2-8.1)
[2020-11-16 12:50] LABS: CARBON DIOXIDE 27 mmol/L (23-31)
[2020-11-16 12:51] LABS: TOTAL BILIRUBIN 0.8 mg/dL (0.2-1.2)
[2020-11-16 12:54] LABS: AST-SGOT 28 U/L (5-34)
[2020-11-16 12:56] LABS: ALT/SGPT 19 U/L (0-55)
[2020-11-16 12:56] LABS: URINE APPEARANCE CLEAR; URINE COLOR YELLOW
[2020-11-16 12:57] LABS: URINE BILIRUBIN NEGATIVE (NEGATIVE); URINE BLOOD TRACE (NEGATIVE); URINE GLUCOSE NEGATIVE (NEGATIVE); URINE KETONE NEGATIVE (NEGATIVE); URINE LEUKOCYTE ESTERASE NEGATIVE (NEGATIVE); URINE NITRATE NEGATIVE (NEGATIVE); URINE PROTEIN(semi-quant) 1+ mg/dL (NEGATIVE); URINE UROBILINOGEN NORMAL (NORMAL)
[2020-11-16 13:08] LABS: TROPONIN-I < 0.03 ng/mL (<0.030)
[2020-11-16 13:20] LABS: PARTIAL THROMBOPLASTIN TIME 26.5 SECONDS (21.0-32.0); PROTHROMBIN TIME 10.5 SECONDS (9.0-12.0)
[2020-11-16 13:34] LABS: D-DIMER 1.74 mg/L FEU (0.15-0.50)
[2020-11-16 18:08] VITALS: BP 175/80
== END 2020-11-16 17:53 | disposition short-term general hospital (02) ==
LOC: ED 10:55
PROVIDERS: Nurse Practitioner
DX: T82.897A Other specified complication of cardiac prosthetic devices, implants and grafts, initial encounter (principal); R42 Dizziness and giddiness; R51.9 Headache, unspecified; R06.02 Shortness of breath; I48.91 Unspecified atrial fibrillation; I10 Essential (primary) hypertension; E78.5 Hyperlipidemia, unspecified; Z79.01 Long term (current) use of anticoagulants; Z95.0 Presence of cardiac pacemaker; Z88.1 Allergy status to other antibiotic agents; Z79.82 Long term (current) use of aspirin
CPT/HCPCS: Q9967

== ENCOUNTER → 2020-12-26 | Outpatient (CLI) | payer MEDICARE ==
[~2020-12-26] MED LIST changes: +CIPROFLOXACIN250 MG PO; +EUTHYROX75 MCG PO
== END ==
LOC: LAB 08:45
DX: E07.9 Disorder of thyroid, unspecified (principal)

== ENCOUNTER → 2021-02-05 | Outpatient (CLI) | payer MEDICARE | LOC: LAB 10:41 | DX: E03.9 Hypothyroidism, unspecified (principal) ==

== ENCOUNTER 2021-08-17 10:09 | Emergency (ER) | payer MEDICARE ==
[~2021-08-17] VITALS: Ht 157.5 cm; Wt 53.2 kg
[2021-08-17 10:41] LABS: BASO # 0.04 K/mm3 (0.02-0.10); EOS # 0.36 K/mm3 (0.04-0.40); EOS % 5.4 % (1.0-5.0); HEMATOCRIT 43.2 % (37.0-47.0); HEMOGLOBIN 13.9 g/dL (12.5-16.0); LYMPH# 1.82 K/mm3 (1.50-4.00); MEAN CELL VOLUME 91 fl (78-100); MEAN CORPUSCULAR HEMOGLOBIN 29 pg (27-31); MEAN CORPUSCULAR HGB CONC 32 g/dL (33-37); MEAN PLATELET VOLUME 11.6 fl (7.4-10.4); MONO # 0.64 K/mm3 (0.20-0.80); NEU # 3.77 K/mm3 (1.40-6.50); PLATELET COUNT 206 K/mm3 (130-400); RED BLOOD COUNT 4.75 M/mm3 (4.10-5.30); RED CELL DISTRIBUTION WIDTH 14.2 % (11.5-14.5); WHITE BLOOD COUNT 6.6 K/mm3 (4.8-10.8)
[2021-08-17 11:43] LABS: POTASSIUM 3.9 mmol/L (3.5-5.1); SODIUM 142 mmol/L (136-145)
[2021-08-17 11:44] LABS: CALCIUM 9.9 mg/dL (8.3-10.5)
[2021-08-17 11:45] LABS: GLUCOSE 105 mg/dL (65-105)
[2021-08-17 11:47] LABS: CARBON DIOXIDE 25 mmol/L (23-31); TOTAL BILIRUBIN 0.9 mg/dL (0.2-1.2)
[2021-08-17 11:51] LABS: AST-SGOT 30 U/L (5-34)
[2021-08-17 11:52] LABS: ALT/SGPT 24 U/L (0-55)
[2021-08-17 11:59] LABS: TROPONIN-I < 0.03 ng/mL (<0.030)
[2021-08-17 12:40] VITALS: BP 127/64
== END 2021-08-17 12:40 | disposition home or self-care (01) ==
LOC: ED 10:09
PROVIDERS: Physician Assistant
DX: F41.9 Anxiety disorder, unspecified (principal); I10 Essential (primary) hypertension; I48.91 Unspecified atrial fibrillation; Z95.0 Presence of cardiac pacemaker; Z79.82 Long term (current) use of aspirin; Z79.01 Long term (current) use of anticoagulants; Z79.899 Other long term (current) drug therapy

== ENCOUNTER 2021-11-04 08:44 | Emergency (ER) | payer MEDICARE ==
[2021-11-04 09:29] LABS: BASO # 0.03 K/mm3 (0.02-0.10); EOS # 0.01 K/mm3 (0.04-0.40); EOS % 0.1 % (1.0-5.0); HEMATOCRIT 38.3 % (37.0-47.0); HEMOGLOBIN 12.4 g/dL (12.5-16.0); MEAN CELL VOLUME 90 fl (78-100); MEAN CORPUSCULAR HEMOGLOBIN 29 pg (27-31); MEAN CORPUSCULAR HGB CONC 32 g/dL (33-37); MONO # 0.84 K/mm3 (0.20-0.80); NEU # 5.12 K/mm3 (1.40-6.50); PLATELET COUNT 181 K/mm3 (130-400); RED BLOOD COUNT 4.25 M/mm3 (4.10-5.30); RED CELL DISTRIBUTION WIDTH 13.3 % (11.5-14.5); WHITE BLOOD COUNT 6.9 K/mm3 (4.8-10.8)
[2021-11-04 10:00] LABS: ALBUMIN 3.7 g/dL (3.4-4.8); POTASSIUM 4.2 mmol/L (3.5-5.1)
[2021-11-04 10:01] LABS: CALCIUM 8.7 mg/dL (8.3-10.5)
[2021-11-04 10:03] LABS: TOTAL PROTEIN 6.7 g/dL (6.2-8.1)
[2021-11-04 10:04] LABS: TOTAL BILIRUBIN 0.8 mg/dL (0.2-1.2)
[2021-11-04] MEDS ORDERED: ZITHROMAX Z PA250 MG PO (11:18)
[2021-11-04] MEDS ORDERED: IPRATROPIUM BROM3 M1 IH (11:18)
[2021-11-04] MEDS ORDERED: GUAIFEN-CODEINE5 ML PO (11:18)
[2021-11-04] MEDS ORDERED: DEXAMETHASONE6 M1 PO (11:18)
[2021-11-04 11:38] VITALS: BP 140/66
== END 2021-11-04 11:33 | disposition home or self-care (01) ==
LOC: ED 08:44
PROVIDERS: Family Medicine
DX: J44.1 Chronic obstructive pulmonary disease with (acute) exacerbation (principal); F17.200 Nicotine dependence, unspecified, uncomplicated; Z20.822 Contact with and (suspected) exposure to COVID-19
CPT/HCPCS: J1100

== ENCOUNTER → 2021-12-21 | Outpatient (CLI) | payer MEDICARE ==
[~2021-12-21] MED LIST changes: +DEXAMETHASONE6 M1 PO; +GUAIFEN-CODEINE5 ML PO; +ZITHROMAX Z PA250 MG PO
[2021-12-21 13:00] LABS: ALBUMIN 3.6 g/dL (3.4-4.8); POTASSIUM 3.6 mmol/L (3.5-5.1)
[2021-12-21 13:01] LABS: CALCIUM 9.8 mg/dL (8.3-10.5)
[2021-12-21 13:04] LABS: TOTAL BILIRUBIN 0.7 mg/dL (0.2-1.2)
[2021-12-21 13:09] LABS: MAGNESIUM 1.7 mg/dL (1.60-2.60)
== END ==
LOC: LAB 12:15
PROVIDERS: Internal Medicine
DX: E03.9 Hypothyroidism, unspecified (principal); I10 Essential (primary) hypertension

== ENCOUNTER 2022-03-05 16:42 | Emergency (ER) | payer MEDICARE ==
[~2022-03-05] VITALS: Ht 157.5 cm; Wt 49.1 kg
[2022-03-05 18:16] LABS: BASO # 0.03 K/mm3 (0.02-0.10); EOS # 0.11 K/mm3 (0.04-0.40); EOS % 2.5 % (1.0-5.0); HEMATOCRIT 36.3 % (37.0-47.0); HEMOGLOBIN 11.9 g/dL (12.5-16.0); LYMPH# 1.37 K/mm3 (1.50-4.00); MEAN CELL VOLUME 90 fl (78-100); MEAN CORPUSCULAR HEMOGLOBIN 30 pg (27-31); MEAN CORPUSCULAR HGB CONC 33 g/dL (33-37); MEAN PLATELET VOLUME 11.5 fl (7.4-10.4); NEU # 2.29 K/mm3 (1.40-6.50); PLATELET COUNT 225 K/mm3 (130-400); RED BLOOD COUNT 4.04 M/mm3 (4.10-5.30); RED CELL DISTRIBUTION WIDTH 13.4 % (11.5-14.5); WHITE BLOOD COUNT 4.4 K/mm3 (4.8-10.8)
[2022-03-05 18:31] LABS: ALBUMIN 3.5 g/dL (3.4-4.8); POTASSIUM 3.8 mmol/L (3.5-5.1); SODIUM 142 mmol/L (136-145)
[2022-03-05 18:33] LABS: CALCIUM 9.3 mg/dL (8.3-10.5)
[2022-03-05 18:34] LABS: GLUCOSE 97 mg/dL (65-105); TOTAL PROTEIN 6.7 g/dL (6.2-8.1)
[2022-03-05 18:35] LABS: CARBON DIOXIDE 23 mmol/L (23-31)
[2022-03-05 18:36] LABS: TOTAL BILIRUBIN 0.7 mg/dL (0.2-1.2)
[2022-03-05 18:39] LABS: AST-SGOT 31 U/L (5-34)
[2022-03-05 18:40] LABS: ALT/SGPT 22 U/L (0-55)
[2022-03-05 18:56] LABS: TROPONIN-I < 0.030 ng/mL (<0.030)
[2022-03-05] MEDS ORDERED: FUROSEMIDE20 MG PO (19:01)
[2022-03-05] MEDS ORDERED: POTASSIUM CH2 MEQ/ML PO (19:02)
[2022-03-05] MEDS ORDERED: MORGIDOX 1X100100 MG PO (20:56)
[2022-03-05] MEDS ORDERED: PREDNISONE20 M1 PO (20:57)
[2022-03-05 21:37] VITALS: BP 142/59
== END 2022-03-05 21:37 | disposition home or self-care (01) ==
LOC: ED 16:42
PROVIDERS: Physician Assistant
DX: J44.9 Chronic obstructive pulmonary disease, unspecified (principal); J06.9 Acute upper respiratory infection, unspecified; I48.91 Unspecified atrial fibrillation; F17.200 Nicotine dependence, unspecified, uncomplicated; Z79.01 Long term (current) use of anticoagulants; Z88.1 Allergy status to other antibiotic agents; Z28.310 Unvaccinated for COVID-19
CPT/HCPCS: J2930

== ENCOUNTER → 2022-04-05 | Outpatient (CLI) | payer MEDICARE ==
[~2022-04-05] MED LIST changes: +FUROSEMIDE20 MG PO; +POTASSIUM CH2 MEQ/ML PO
[2022-04-05 11:26] LABS: BASO # 0.04 K/mm3 (0.02-0.10); EOS # 0.32 K/mm3 (0.04-0.40); EOS % 3.5 % (1.0-5.0); HEMATOCRIT 39.3 % (37.0-47.0); HEMOGLOBIN 12.5 g/dL (12.5-16.0); MEAN CELL VOLUME 93 fl (78-100); MEAN CORPUSCULAR HEMOGLOBIN 30 pg (27-31); MEAN CORPUSCULAR HGB CONC 32 g/dL (33-37); MEAN PLATELET VOLUME 11.1 fl (7.4-10.4); MONO # 0.85 K/mm3 (0.20-0.80); NEU # 6.53 K/mm3 (1.40-6.50); PLATELET COUNT 173 K/mm3 (130-400); RED BLOOD COUNT 4.23 M/mm3 (4.10-5.30); RED CELL DISTRIBUTION WIDTH 13.7 % (11.5-14.5); WHITE BLOOD COUNT 9.1 K/mm3 (4.8-10.8)
[2022-04-05 11:27] LABS: ALBUMIN 3.5 g/dL (3.4-4.8)
[2022-04-05 11:28] LABS: CALCIUM 9.4 mg/dL (8.3-10.5)
[2022-04-05 11:29] LABS: TOTAL PROTEIN 6.2 g/dL (6.2-8.1)
[2022-04-05 11:31] LABS: TOTAL BILIRUBIN 0.9 mg/dL (0.2-1.2)
[2022-04-05 11:36] LABS: MAGNESIUM 2.08 mg/dL (1.60-2.60)
== END ==
LOC: LAB 10:20
PROVIDERS: Internal Medicine
DX: I48.20 Chronic atrial fibrillation, unspecified (principal); Z12.39 Encounter for other screening for malignant neoplasm of breast; I50.32 Chronic diastolic (congestive) heart failure; J43.2 Centrilobular emphysema; I50.1 Left ventricular failure, unspecified; I10 Essential (primary) hypertension; E78.2 Mixed hyperlipidemia; E03.9 Hypothyroidism, unspecified; K90.9 Intestinal malabsorption, unspecified; I49.5 Sick sinus syndrome; M85.80 Other specified disorders of bone density and structure, unspecified site

== ENCOUNTER → 2022-04-25 | Outpatient (CLI) | payer MEDICARE | LOC: MAMMO 10:00 | DX: Z12.31 Encounter for screening mammogram for malignant neoplasm of breast (principal); M81.0 Age-related osteoporosis without current pathological fracture; Z78.0 Asymptomatic menopausal state ==

== ENCOUNTER → 2022-05-02 | Outpatient (CLI) | payer MEDICARE | LOC: LAB 10:17 | DX: I50.32 Chronic diastolic (congestive) heart failure (principal); Z12.11 Encounter for screening for malignant neoplasm of colon; J43.2 Centrilobular emphysema; M81.0 Age-related osteoporosis without current pathological fracture; I49.5 Sick sinus syndrome; E03.9 Hypothyroidism, unspecified; K90.9 Intestinal malabsorption, unspecified; I10 Essential (primary) hypertension; E61.1 Iron deficiency; R19.5 Other fecal abnormalities ==

== ENCOUNTER → 2022-05-13 | Outpatient (CLI) | payer MEDICARE | LOC: LAB 15:56 | DX: I50.32 Chronic diastolic (congestive) heart failure (principal); M81.0 Age-related osteoporosis without current pathological fracture; Z12.11 Encounter for screening for malignant neoplasm of colon; J43.2 Centrilobular emphysema; I49.5 Sick sinus syndrome; E03.9 Hypothyroidism, unspecified; K90.9 Intestinal malabsorption, unspecified; R19.5 Other fecal abnormalities; E61.1 Iron deficiency; I10 Essential (primary) hypertension ==

== ENCOUNTER → 2022-08-01 | Outpatient (CLI) | payer MEDICARE | LOC: RAD 09:15 | DX: M25.551 Pain in right hip (principal); G89.29 Other chronic pain ==

== ENCOUNTER 2022-09-13 08:00 | Outpatient (RCR) | payer MEDICARE | END 2022-10-01 | disposition home or self-care (01) | LOC: PT | DX: M70.61 Trochanteric bursitis, right hip (principal) ==

== ENCOUNTER → 2022-11-21 | Outpatient (CLI) | payer MEDICARE ==
[2022-11-21 10:48] LABS: HEMATOCRIT 47.1 % (37.0-47.0); HEMOGLOBIN 15.1 g/dL (12.5-16.0); MEAN PLATELET VOLUME 10.8 fl (7.4-10.4); RED BLOOD COUNT 4.95 M/mm3 (4.10-5.30); RED CELL DISTRIBUTION WIDTH 13.1 % (11.5-14.5)
== END ==
LOC: LAB 10:34
PROVIDERS: Internal Medicine Cardiovascular Disease
DX: I48.0 Paroxysmal atrial fibrillation (principal)

== ENCOUNTER → 2023-06-11 | Outpatient (CLI) | payer MEDICARE ==
[~2023-06-11] MED LIST changes: +ALBUTEROL2.5 MG/3 M IH; +ATROVENT I0.2 MG/1 M IH; +B12 ACTIVE1000 MCG PO; +NATURAL IRON65 MG PO; +TRELEGY ELLIPT1 EACH IH
[2023-06-11 12:03] LABS: POTASSIUM 4.2 mmol/L (3.5-5.1)
== END ==
LOC: MAMMO 10:00 → LAB 10:49 → RAD 10:49
PROVIDERS: Internal Medicine
DX: Z12.31 Encounter for screening mammogram for malignant neoplasm of breast (principal); N18.9 Chronic kidney disease, unspecified; I50.32 Chronic diastolic (congestive) heart failure

== ENCOUNTER → 2023-11-18 | Outpatient (CLI) | payer MEDICARE ==
[2023-11-18 15:53] LABS: BASO # 0.03 K/mm3 (0.02-0.10); EOS # 1.03 K/mm3 (0.04-0.40); EOS % 11.7 % (1.0-5.0); HEMATOCRIT 45.6 % (37.0-47.0); HEMOGLOBIN 14.6 g/dL (12.5-16.0); LYMPH# 0.93 K/mm3 (1.50-4.00); MEAN CELL VOLUME 92 fl (78-100); MEAN CORPUSCULAR HEMOGLOBIN 29 pg (27-31); MEAN CORPUSCULAR HGB CONC 32 g/dL (33-37); MEAN PLATELET VOLUME 9.7 fl (7.4-10.4); MONO # 0.83 K/mm3 (0.20-0.80); NEU # 5.97 K/mm3 (1.40-6.50); PLATELET COUNT 310 K/mm3 (130-400); RED BLOOD COUNT 4.96 M/mm3 (4.10-5.30); RED CELL DISTRIBUTION WIDTH 14.4 % (11.5-14.5); WHITE BLOOD COUNT 8.8 K/mm3 (4.8-10.8)
[2023-11-18 16:07] LABS: CALCIUM 9.9 mg/dL (8.3-10.5)
[2023-11-18 16:08] LABS: TOTAL PROTEIN 7.6 g/dL (6.2-8.1)
[2023-11-18 16:10] LABS: TOTAL BILIRUBIN 0.5 mg/dL (0.2-1.2)
[2023-11-18 16:14] LABS: MAGNESIUM 2.14 mg/dL (1.60-2.60)
== END ==
LOC: LAB 15:15
PROVIDERS: Internal Medicine
DX: E03.9 Hypothyroidism, unspecified (principal); I10 Essential (primary) hypertension

== ENCOUNTER 2024-06-22 09:00 | Outpatient (RCR) | payer MEDICARE | END 2024-07-01 | disposition home or self-care (01) | LOC: PT | DX: M70.62 Trochanteric bursitis, left hip (principal) ==

== ENCOUNTER → 2024-07-17 | Outpatient (CLI) | payer MEDICARE | LOC: RAD 08:28 | DX: M25.572 Pain in left ankle and joints of left foot (principal) ==

== ENCOUNTER 2024-09-09 15:41 | Emergency (ER) | payer MEDICARE ==
[~2024-09-09] VITALS: Ht 157.5 cm; Wt 57.9 kg
[2024-09-09] MEDS ORDERED: Ketorolac 30 MG/ML VIAL IM ONE (16:15)
[2024-09-09] MEDS ORDERED: Orphenadrine 60 MG/2ML AMP IM ONE (16:15)
[2024-09-09 17:17] LABS: BASO # 0.02 K/mm3 (0.02-0.10); HEMATOCRIT 40.8 % (37.0-47.0); HEMOGLOBIN 13.3 g/dL (12.5-16.0); MEAN CELL VOLUME 97 fl (78-100); MEAN CORPUSCULAR HEMOGLOBIN 32 pg (27-31); MEAN CORPUSCULAR HGB CONC 33 g/dL (33-37); MEAN PLATELET VOLUME 9.9 fl (7.4-10.4); MONO # 0.88 K/mm3 (0.20-0.80); NEU # 7.96 K/mm3 (1.40-6.50); PLATELET COUNT 235 K/mm3 (130-400); RED CELL DISTRIBUTION WIDTH 13.4 % (11.5-14.5); WHITE BLOOD COUNT 9.9 K/mm3 (4.8-10.8)
[2024-09-09 17:26] LABS: ALBUMIN 3.8 g/dL (3.4-4.8)
[2024-09-09 17:27] LABS: SODIUM 135 mmol/L (136-145)
[2024-09-09 17:28] LABS: CALCIUM 9.7 mg/dL (8.3-10.5)
[2024-09-09 17:29] LABS: GLUCOSE 117 mg/dL (65-105); TOTAL PROTEIN 7.2 g/dL (6.2-8.1)
[2024-09-09 17:30] LABS: CARBON DIOXIDE 20 mmol/L (23-31)
[2024-09-09 17:31] LABS: TOTAL BILIRUBIN 0.5 mg/dL (0.2-1.2)
[2024-09-09 17:34] LABS: AST-SGOT 18 U/L (5-34)
[2024-09-09 17:35] LABS: ALT/SGPT 14 U/L (0-55)
[2024-09-09 17:49] LABS: TROPONIN-I < 0.030 ng/mL (0.00-0.033)
[2024-09-09] MEDS ORDERED: Cyclobenzaprine 10 MG TAB PO ONE (18:00)
[2024-09-09] MEDS ORDERED: NORCO 325 MG-51 TA1 PO (18:01)
[2024-09-09] MEDS ORDERED: CYCLOBENZAPRINE10 M1 PO (18:01)
[2024-09-09 18:15] VITALS: BP 133/60
== END 2024-09-09 18:15 | disposition home or self-care (01) ==
LOC: ED 15:41
PROVIDERS: Nurse Practitioner
DX: S46.911A Strain of unspecified muscle, fascia and tendon at shoulder and upper arm level, right arm, initial encounter (principal); F17.200 Nicotine dependence, unspecified, uncomplicated; Z95.5 Presence of coronary angioplasty implant and graft; Z79.01 Long term (current) use of anticoagulants; Z79.82 Long term (current) use of aspirin; X58.XXXA Exposure to other specified factors, initial encounter
CPT/HCPCS: J1885; J2360

== ENCOUNTER 2024-10-05 05:26 | Emergency (ER) | payer MEDICARE ==
[~2024-10-05] VITALS: Ht 157.5 cm; Wt 58.2 kg
[~2024-10-05 05:26] MED LIST changes: +CYCLOBENZAPRINE10 M1 PO; +NORCO 325 MG-51 TA1 PO
[2024-10-05] MEDS ORDERED: Home HYDROcodone/Acetaminophen 5/325 MG #4 TABS/PACK PO ONE (06:30)
[2024-10-05 06:40] VITALS: BP 154/82
== END 2024-10-05 06:40 | disposition home or self-care (01) ==
LOC: ED 05:26
DX: S92.411A Displaced fracture of proximal phalanx of right great toe, initial encounter for closed fracture (principal); S92.321A Displaced fracture of second metatarsal bone, right foot, initial encounter for closed fracture; Z95.0 Presence of cardiac pacemaker; W01.0XXA Fall on same level from slipping, tripping and stumbling without subsequent striking against object, initial encounter; X50.1XXA Overexertion from prolonged static or awkward postures, initial encounter
CPT/HCPCS: L4386

== ENCOUNTER → 2024-11-11 | Outpatient (CLI) | payer MEDICARE | LOC: MAMMO 08:22 | DX: Z12.31 Encounter for screening mammogram for malignant neoplasm of breast (principal); Z13.820 Encounter for screening for osteoporosis; M81.0 Age-related osteoporosis without current pathological fracture ==

== ENCOUNTER → 2024-12-07 | Outpatient (CLI) | payer MEDICARE ==
[2024-12-07 10:31] LABS: BASO # 0.04 K/mm3 (0.02-0.10); EOS # 0.21 K/mm3 (0.04-0.40); EOS % 1.9 % (1.0-5.0); HEMATOCRIT 40.7 % (37.0-47.0); HEMOGLOBIN 13.1 g/dL (12.5-16.0); MEAN CELL VOLUME 98 fl (78-100); MEAN CORPUSCULAR HEMOGLOBIN 32 pg (27-31); MEAN CORPUSCULAR HGB CONC 32 g/dL (33-37); MEAN PLATELET VOLUME 10.3 fl (7.4-10.4); MONO # 1.03 K/mm3 (0.20-0.80); NEU # 8.49 K/mm3 (1.40-6.50); PLATELET COUNT 255 K/mm3 (130-400); RED BLOOD COUNT 4.14 M/mm3 (4.10-5.30); WHITE BLOOD COUNT 10.9 K/mm3 (4.8-10.8)
[2024-12-07 10:33] LABS: ALBUMIN 3.9 g/dL (3.4-4.8)
[2024-12-07 10:34] LABS: CALCIUM 9.1 mg/dL (8.3-10.5)
[2024-12-07 10:35] LABS: TOTAL PROTEIN 7.7 g/dL (6.2-8.1)
[2024-12-07 10:37] LABS: TOTAL BILIRUBIN 0.8 mg/dL (0.2-1.2)
[2024-12-07 10:42] LABS: MAGNESIUM 1.85 mg/dL (1.60-2.60)
== END ==
LOC: LAB 09:58
PROVIDERS: Internal Medicine
DX: Z12.11 Encounter for screening for malignant neoplasm of colon (principal); E03.9 Hypothyroidism, unspecified; I65.29 Occlusion and stenosis of unspecified carotid artery; I10 Essential (primary) hypertension; K90.9 Intestinal malabsorption, unspecified

== ENCOUNTER → 2024-12-14 | Outpatient (CLI) | payer MEDICARE ==
[~2024-12-14] VITALS: Ht 157.5 cm; Wt 58.2 kg
[~2024-12-14] MED LIST changes: +Denosumab 60 MG/ML SYRINGE SQ ONE
[2024-12-14 09:03] VITALS: BP 129/54
== END ==
LOC: AMSURD 08:50
DX: M81.0 Age-related osteoporosis without current pathological fracture (principal)
CPT/HCPCS: J0897